=== PATIENT | female | born 1995 | race Caucasian/White ===

== ENCOUNTER 2018-10-19 14:26 | Emergency (ER) | payer OTHER ==
[~2018-10-19] VITALS: Ht 157.5 cm; Wt 84.1 kg
[~2018-10-19 14:26] MED LIST: FERR325E14 PO; PREN-385 PO
[2018-10-19 14:50] VITALS: BP 140/89
[2018-10-19] MEDS ORDERED: KETOROLAC 60 MG/2 ML VIAL IM ONE (16:40)
[2018-10-19] MEDS ORDERED: NACL 0.9% 1,000 ML IV ONE (17:16)
[2018-10-19] MEDS ORDERED: METOCLOPRAMIDE 10 MG/2 ML INJ VIAL IVP ONE (17:20)
[2018-10-19] MEDS ORDERED: diphenhydrAMINE 50 MG/ML VIAL IVP ONE (17:20)
[2018-10-19 18:52] VITALS: BP 140/89
== END 2018-10-19 18:52 | disposition home or self-care (01) ==
LOC: MED 14:26
DX: R51 Headache (principal); M54.2 Cervicalgia; R11.0 Nausea; Z79.899 Other long term (current) drug therapy
CPT/HCPCS: 81002; 81025; 96372; 96374; 96375; 99283; J1200; J1885; J2765; J7030

== ENCOUNTER 2018-11-23 20:58 | Emergency (ER) | payer OTHER ==
[~2018-11-23] VITALS: Ht 157.5 cm; Wt 83.5 kg
[2018-11-23 21:09] VITALS: BP 140/74
--- NOTE | 2018-11-23 21:11 | NUR ---
PT RETURNED TO LOBBY IN STABLE CONDITION
--- NOTE | 2018-11-23 22:51 | NUR ---
PT PRESENTS TO ED WITH C/O OF R EARLOBE REDNESS AND SWELLING S/P BACK OF EARRING GETING STUCK INTO IT. SMALL NODULE FELT TO RT EARLOBE. PT DENIES PAIN AT THIS TIME. PT PALCED INTO BED, PENDING MD ROTHMAN. PMH--DENIES RX--DENIES
[2018-11-23 23:07] VITALS: BP 140/74
--- NOTE | 2018-11-23 23:07 | NUR ---
Patient discharged with v/s stable. Written and verbal after care instructions given and explained. Patient verbalized understanding. Ambulatory with steady gait. All questions addressed prior to discharge. Advised to follow up with PMD.
== END 2018-11-23 23:07 | disposition home or self-care (01) ==
LOC: MED 20:58
DX: T16.2XXA Foreign body in left ear, initial encounter (principal); Z79.899 Other long term (current) drug therapy; X58.XXXA Exposure to other specified factors, initial encounter; Y93.89 Activity, other specified; Y92.89 Other specified places as the place of occurrence of the external cause; Y99.8 Other external cause status
CPT/HCPCS: 99284

== ENCOUNTER 2019-01-04 09:12 | Emergency (ER) | payer OTHER ==
[~2019-01-04] VITALS: Ht 157.5 cm; Wt 83.9 kg
[2019-01-04 09:22] VITALS: BP 123/69
--- NOTE | 2019-01-04 09:35 | NUR ---
BIB SELF WITH C/O MIGRAINES ;DENIES BLURRY VISIONX 3 DAYS, SORE THROAT X 2 DAYS. DENIES N/V/D; SKIN IS PINK/WARM/DRY; AAOX4 WITH EVEN AND STEADY GAIT; LUNGS CLEAR BL; HR EVEN AND REGULAR; PT DENIES ANY FEVER, CP, SOB, OR COUGH AT THIS TIME; PATIENT STATES PAIN OF 10/10 AT THIS TIME. PATIENT POSITIONED FOR COMFORT; HOB ELEVATED; BEDRAILS UP X2; BED DOWN. ER MD MADE AWARE OF PT STATUS.
[2019-01-04] MEDS ORDERED: PROCHLORPERAZINE 10 MG/2 ML VIAL IM ONE (10:50)
[2019-01-04] MEDS ORDERED: KETOROLAC 60 MG/2 ML VIAL IM ONE (10:50)
[2019-01-04 12:36] VITALS: BP 119/63
--- NOTE | 2019-01-04 12:36 | NUR ---
Patient discharged with v/s stable. Written and verbal after care instructions given and explained. Patient alert, oriented and verbalized understanding of instructions. Ambulatory with steady gait. All questions addressed prior to discharge. ID band removed. Patient advised to follow up with PMD. Rx of NAPRSYN & COMPAZINE given. Patient educated on indication of medication including possible reaction and side effects. Opportunity to ask questions provided and answered.
== END 2019-01-04 12:36 | disposition home or self-care (01) ==
LOC: MED 09:12
DX: G43.909 Migraine, unspecified, not intractable, without status migrainosus (principal); J02.9 Acute pharyngitis, unspecified
CPT/HCPCS: 96372; 99283; J0780; J1885

== ENCOUNTER 2022-05-19 17:52 | Emergency (ER) | payer BC, OTHER ==
[~2022-05-19] VITALS: Ht 157.5 cm; Wt 95.7 kg
[2022-05-19 18:29] VITALS: BP 162/83
--- NOTE | 2022-05-19 20:25 | NUR ---
27 y/o female bibs from home, c/o chest pressure, body aches, headache that started yesterday. pt states 10/10 pain. pt states daughter at home is sick with same s/s. pt states she tested postive for covid yesterday. a/ox4, unlabored breathing, speaking in full sentences; ambulatory w/o assistance. pmh: htn nka med: denies
--- NOTE | 2022-05-19 20:27 | NUR ---
dr linda at bedside examining pt
[2022-05-19] MEDS: LORazepam 1 MG TAB PO ONE (21:54)
[2022-05-19] MEDS: KETOROLAC 30 MG/ML VIAL IM ONE (21:55)
[2022-05-19] MEDS ORDERED: NAPR-54 PO (22:03)
[2022-05-19 22:35] VITALS: BP 117/83
--- NOTE | 2022-05-19 22:35 | NUR ---
Patient discharged with v/s stable. Written and verbal after care instructions given COVID/HYPERTENSION and explained. Patient alert, oriented and verbalized understanding of instructions. Ambulatory with steady gait. All questions addressed prior to discharge. ID band removed. Patient advised to follow up with PMD. Rx of NAPROXEN given.
== END 2022-05-19 22:35 | disposition home or self-care (01) ==
LOC: MED 17:52
DX: U07.1 COVID-19 (principal)
CPT/HCPCS: 71045; 81002; 81025; 96372; 99285; J1885